=== PATIENT | male | born 1955 | race Caucasian/White ===

== ENCOUNTER 2022-06-04 11:53 | Observation (INO) ==
[2022-06-04] MEDS ORDERED: IODIXANOL 100 ML BOTTLE IV ONE (11:54)
[2022-06-04] MEDS ORDERED: 0.9 % SODIUM CHLORIDE 1,000 ML IV ONE (12:14)
--- NOTE | 2022-06-04 12:40 | Emergency Department Note ---
SOB HPI General Chief Complaint: Shortness of Breath/Dyspnea Stated Complaint: Throwing up blood his dr said go to ED Time Seen by Provider: 06/04/22 12:09 Source: patient Mode of arrival: ambulatory Limitations: no limitations History of Present Illness HPI Narrative: Ric Corbett is a 67-year-old male with a history of colon cancer (liver, status postresection), who presents emergency department complaining of hemoptysis for 4 to 5 days, 2-3 bouts per day, following a sharp pain, like a stitch in his right chest wall for approximately 6 to 7 days, growing progressively better each day. The patient states that on Thanksgi, he was choking and gagging, then coughing and the following day he developed right chest wall pain. He states has been unable to take a deep breath. He reports a history of pulmonary embolism after surgery to treat colon cancer with liver lesions, and he states this was very painful. He states his present symptoms are not the same as this. The patient says he was anticoagulated for approximately 1 year following diagnosis of pulmonary embolism. He says he is not presently on anticoagulant therapy. The patient reports that his hemoptysis is approximately a pencil-eras er-sized "blood clot looking thing." The patient says he has not had confinement, trauma, or surgery recently. He denies abdominal pain, leg pain, calf tenderness, dizziness, syncope, and all other acute complaints at this time. Related Data Home Medications Medication Instructions Recorded Confirmed cholecalciferol (vitamin D3) See Rx Instructions .Route .COMPLEX 04/08/21 06/04/22 Previous Rx's Medication Instructions Recorded pantoprazole 40 mg tablet,delayed 40 mg PO QDAY #90 tabs 09/17/21 release diltiazem HCl 240 mg capsule,24 See Rx Instructions .Route 12/14/21 hr,extended release .COMPLEX #90 caps apixaban 5 mg tablet (Eliquis) 10 mg PO BID #60 tabs 06/04/22 Allergies Allergy/AdvReac Type Severity Reaction Status Date / Time No Known Drug Allergies Allergy Verified 12/10/21 09:59 Review of Systems ROS ROS Narrative: A comprehensive review of systems is obtained and found to be negative, except as per HPI. [facility] Narr[facility] Patient History Narrative: Narrative: Medical/Surgical/Family History All Active Problems (Updated 06/04/22 @ 19:13 by Arlen Molina PA-C) Pulmonary embolism (Acute) DVT of lower extremity, bilateral (Acute) Hypertriglyceridemia (Acute) Peripheral neuropathy (Chronic) Hypertension (Chronic) Diabetes mellitus (Chronic) Colon cancer (Chronic) Medical History (Updated 06/04/22 @ 19:13 by Arlen Molina PA-C) Colon cancer Diabetes mellitus Gross hematuria September 2020, single episode Hypertension Hypertriglyceridemia Peripheral neuropathy After chemo Surgical History (Updated 04/08/21 @ 11:13 by Faizan Driscoll MD) History of partial colectomy Jun 2009 Liver mass 2010 resection after tumor shrunk with chemo No pertinent past surgical history Family History (Updated 04/03/21 @ 12:38 by Melissa Colin) Other No pertinent family history Social History Smoking Status: Former smoker Alcohol Intake Frequency: 2+ drinks per day Substance Use: marijuana Exam Narrative Narrative: General: Alert, pleasant, conversant, NAD; morbidly obese HEENT: Mask in place per COVID protocol, EOMI, PERRL Chest/Respiratory: Symmetric chest wall expansion, CTAB, adequate tidal volume and respiratory effort, speaks in complete paragraphs without difficulty CV: RRR/no MRG, cap refill less than 2 seconds Abdomen/GI: NABs, soft, NT/ND Extremities/MSK: MAEW, normal gait, no calf tenderness Skin: Normal warm and dry General Limitations: no limitations Course Course Course Narrative: Patient seen and evaluated by me. Upon initial evaluation there is a high susp icion for PE, and this work-up was initiated. Patient is treated with IV fluids and hospitalist consultation is requested upon return of results. Given the fact that the patient lives far from the hospital, with weather complicating transport (taking significantly more time), the possibility observation versus admission is discussed with the patient. He states that he does not wish to be admitted. Using a shared decision-making process, the importance of continued hospital care is discussed with the patient, and he agrees to consider observation. This is further discussed with the hospitalist, , who agrees to continue this discussion with the patient and his . Following th is discussion, the patient agrees to be placed to observation and Dr. Engel requests bilateral venous Dopplers to evaluate for DVT and initiation of a heparin drip for this patient. Venous Doppler studies return positive for extensive DVT bilaterally. Consultations Consultation #1: Called radiology to discuss pulmonary nodule on today's CXR that was not noted on 2017 CT C/A/P order for restaging of colon CA. Time: 12:58 Vital Signs Vital signs: Vital Signs Temperature 97.6 F 06/04/22 11:57 Pulse Rate 72 06/04/22 11:57 Respiratory Rate 22 06/04/22 11:57 Blood Pressure 180/88 06/04/22 11:57 Pulse Oximetry (%) 96 06/04/22 11:57 Oxygen Delivery Method 06/04/22 11:57 Temperature 97.8 F 06/04/22 17:45 Pulse Rate 63 06/04/22 17:38 Respiratory Rate 24 H 06/04/22 17:45 Blood Pressure 162/76 06/04/22 17:45 Pulse Oximetry (%) 94 06/04/22 17:45 Oxygen Delivery Method 06/04/22 17:38 MDM MDM Narrative Medical decision making narrative: Patient seen and evaluated by me. The patient is in no apparent distress, and his chest wall is not tender to palpation. Initial chest x-ray shows a rather large right basilar pulmonary nodule. This was not present on a 2017 CT C/A/P that was performed specifically for restaging of his colon cancer, ordered by Dr. Pavel Apple of the oncology service. D-dimer is 6.88, suspicious for DVT/PE. Today's CT returns positive for multiple pulmonary emboli bilaterally, as well as pulmonary infarct at the right basilar lung. Bilateral venous Dopplers return positive for extensive DVTs bilaterally, despite lack of calf tenderness upon exam. The patient accepted for placement to observation status with initiation of a heparin drip by Dr Engel. Sepsis Sepsis Identified: No Lab Data Lab results reviewed: Yes I reviewed the patient's lab results. Result diagrams: 06/04/22 12:44 06/04/22 12:44 Labs: Lab Results 06/04/22 06/04/22 06/04/22 Range/Units 12:40 12:42 12:44 WBC 7.1 (4.5-11.0) K/mcL RBC 4.98 (4.63-6.08) M/mcL Hgb 15.7 (13.7-17.5) g/dL Hct 46.7 (40.1-51.0) % POC Hct 48.0 (41-55) MCV 93.8 (80.0-100.0) fL MCH 31.5 (26.0-34.0) pg MCHC 33.6 (31.0-36.0) g/dL RDW 13.1 (11.5-14.5) % Plt Count 336 (140-440) K/mcL MPV 8.8 (8.8-12.5) fL Immature Gran % (Auto) 0.7 H (0.0-0.5) % Neut % (Auto) 63.7 (38.0-78.0) % Lymph % (Auto) 18.8 (15.5-49.0) % [place] % (Auto) 14.1 H (1.0-12.0) % Eos % (Auto) 1.6 (0.0-7.0) % Baso % (Auto) 1.1 (0.0-2.0) % Lymph # (Auto) 1.33 L (1.50-4.80) K/mcL [place] # (Auto) 1.00 H (0.10-0.90) K/mcL Eos # (Auto) 0.11 (0.00-0.70) K/mcL Baso # (Auto) 0.08 (0.00-0.30) K/mcL Immature Gran # 0.05 (0.00-0.05) K/mcl Absolute Neutrophils 4.50 (1.80-8.00) K/mcL POC PT (11.9-14.5) POC INR (0.8-1.2) APTT (20.0-37.0) sec D-Dimer (0.27-0.50) ug/mL POC Sodium 137 (133-145) Sodium (133-145) mmol/L POC Potassium 3.8 (3.3-5.1) Potassium (3.3-5.1) mmol/L POC Chloride 103 (96-108) Chloride (96-108) mmol/L Carbon Dioxide (22-30) mmol/L POC Total CO2 21.0 L (22-30) Anion Gap (8.0-16.0) POC BUN 21 H (6-20) BUN (8-23) mg/dL Creatinine (0.7-1.2) mg/dL POC Creatinine 1.0 (0.6-1.2) GFR Calculation Glucose (70-105) mg/dL POC Glucose 113 H (70-105) Calcium (8.6-10.4) mg/dL POC WB Ioniz Calcium 1.26 (1.16-1.32) Total Bilirubin (0.1-1.0) mg/dL AST (<40) U/L ALT (<40) U/L Alkaline Phosphatase (39-117) U/L Total Protein (5.9-8.4) gm/dL Albumin (3.2-5.2) gm/dL Globulin (2.2-3.7) gm/dL Albumin/Globulin Ratio (1.0-2.3) POC Troponin I < 0.02 (0.00-0.08) 06/04/22 06/04/22 06/04/22 Range/Units 12:44 12:44 12:44 WBC (4.5-11.0) K/mcL RBC (4.63-6.08) M/mcL Hgb (13.7-17.5) g/dL Hct (40.1-51.0) % POC Hct (41-55) MCV (80.0-100.0) fL MCH (26.0-34.0) pg MCHC (31.0-36.0) g/dL RDW (11.5-14.5) % Plt Count (140-440) K/mcL MPV (8.8-12.5) fL Immature Gran % (Auto) (0.0-0.5) % Neut % (Auto) (38.0-78.0) % Lymph % (Auto) (15.5-49.0) % [place] % (Auto) (1.0-12.0) % Eos % (Auto) (0.0-7.0) % Baso % (Auto) (0.0-2.0) % Lymph # (Auto) (1.50-4.80) K/mcL [place] # (Auto) (0.10-0.90) K/mcL Eos # (Auto) (0.00-0.70) K/mcL Baso # (Auto) (0.00-0.30) K/mcL Immature Gran # (0.00-0.05) K/mcl Absolute Neutrophils (1.80-8.00) K/mcL POC PT (11.9-14.5) POC INR (0.8-1.2) APTT 25.7 (20.0-37.0) sec D-Dimer 6.88 H (0.27-0.50) ug/mL POC Sodium (133-145) Sodium 133 (133-145) mmol/L POC Potassium (3.3-5.1) Potassium 3.7 (3.3-5.1) mmol/L POC Chloride (96-108) Chloride 99 (96-108) mmol/L Carbon Dioxide 19 L (22-30) mmol/L POC Total CO2 (22-30) Anion Gap 15.0 (8.0-16.0) POC BUN (6-20) BUN 18 (8-23) mg/dL Creatinine 1.0 (0.7-1.2) mg/dL POC Creatinine (0.6-1.2) GFR Calculation 76 Glucose 109 H (70-105) mg/dL POC Glucose (70-105) Calcium 9.6 (8.6-10.4) mg/dL POC WB Ioniz Calcium (1.16-1.32) Total Bilirubin 0.5 (0.1-1.0) mg/dL AST 51 H (<40) U/L ALT 34 (<40) U/L Alkaline Phosphatase 42 (39-117) U/L Total Protein 7.4 (5.9-8.4) gm/dL Albumin 3.6 (3.2-5.2) gm/dL Globulin 3.8 H (2.2-3.7) gm/dL Albumin/Globulin Ratio 0.9 L (1.0-2.3) POC Troponin I (0.00-0.08) 06/04/22 Range/Units 17:01 WBC (4.5-11.0) K/mcL RBC (4.63-6.08) M/mcL Hgb (13.7-17.5) g/dL Hct (40.1-51.0) % POC Hct (41-55) MCV (80.0-100.0) fL MCH (26.0-34.0) pg MCHC (31.0-36.0) g/dL RDW (11.5-14.5) % Plt Count (140-440) K/mcL MPV (8.8-12.5) fL Immature Gran % (Auto) (0.0-0.5) % Neut % (Auto) (38.0-78.0) % Lymph % (Auto) (15.5-49.0) % [place] % (Auto) (1.0-12.0) % Eos % (Auto) (0.0-7.0) % Baso % (Auto) (0.0-2.0) % Lymph # (Auto) (1.50-4.80) K/mcL [place] # (Auto) (0.10-0.90) K/mcL Eos # (Auto) (0.00-0.70) K/mcL Baso # (Auto) (0.00-0.30) K/mcL Immature Gran # (0.00-0.05) K/mcl Absolute Neutrophils (1.80-8.00) K/mcL POC PT 16.9 H (11.9-14.5) POC INR 1.4 H (0.8-1.2) APTT (20.0-37.0) sec D-Dimer (0.27-0.50) ug/mL POC Sodium (133-145) Sodium (133-145) mmol/L POC Potassium (3.3-5.1) Potassium (3.3-5.1) mmol/L POC Chloride (96-108) Chloride (96-108) mmol/L Carbon Dioxide (22-30) mmol/L POC Total CO2 (22-30) Anion Gap (8.0-16.0) POC BUN (6-20) BUN (8-23) mg/dL Creatinine (0.7-1.2) mg/dL POC Creatinine (0.6-1.2) GFR Calculation Glucose (70-105) mg/dL POC Glucose (70-105) Calcium (8.6-10.4) mg/dL POC WB Ioniz Calcium (1.16-1.32) Total Bilirubin (0.1-1.0) mg/dL AST (<40) U/L ALT (<40) U/L Alkaline Phosphatase (39-117) U/L Total Protein (5.9-8.4) gm/dL Albumin (3.2-5.2) gm/dL Globulin (2.2-3.7) gm/dL Albumin/Globulin Ratio (1.0-2.3) POC Troponin I (0.00-0.08) Radiology Data Radiology results reviewed: Yes I reviewed the patient's radiology results. Radiology results narrative: CTA Chest: IMPRESSION 1. Bilateral pulmonary embolism. Clot burden is considered large 2. Right lower lobe infiltrate consistent with pulmonary infarction 3. No pulmonary nodules 4. Mediastinal adenopathy is probably physiologic Interpreted and Authenticated by: Ty Mike 06/04/22 Bilateral venous Doppler: IMPRESSION 1 occlusive thrombus in the visualized aspect of the right greater saphenous vein, common femoral vein, proximal profunda femoral vein, and proximal femoral vein. 2. Occlusive thrombus in the mid and distal aspects of the left femoral vein as well as the left popliteal vein. Electronically signed by Jemal Estrada MD, June 04, 2022, at 1743 Paci fic Discharge Plan Patient/Caregiver Discharge Instructions Pt seen by AS[employer]/PA only: Yes Clinical Impression: Pulmonary embolism, DVT of lower extremity, bilateral Activity: increase activity as tolerated Patient Disposition: Still a Patient Condition: Fair
--- NOTE | 2022-06-04 12:44 | XRay Report ---
INDICATION: dyspnea. Hematemesis. History of colon cancer TECHNIQUE: AP portable chest x-ray COMPARISON: Previous chest CT dated 12/30/2016 FINDINGS: Lungs:Probable right basilar pulmonary parenchymal nodule. This is not optimally demonstrated. This patient has a history of colon cancer. Chest CT scan is recommended. Left lung appears negative. Heart, vascular:No significant cardiomegaly. Pulmonary vascularity is normal. No pulmonary edema or pulmonary congestion Mediastinum, gil:No mediastinal widening. No hilar mass Pleura:No pleural fluid. No pleural-based mass or calcification Skeletal:Negative. IMPRESSION: 1. Probable right basilar nodule 2. Recommend chest CT Interpreted and Authenticated by: Ty Mike 06/04/22
[2022-06-04 12:51] LABS: POC Calcium, Ionized 1.26 (1.16-1.32); POC Potassium 3.8 (3.3-5.1)
[2022-06-04 13:15] LABS: Basophils # (Auto) 0.08 K/mcL (0.00-0.30); Basophils % (Auto) 1.1 % (0.0-2.0); Eosinophils # (Auto) 0.11 K/mcL (0.00-0.70); Eosinophils % (Auto) 1.6 % (0.0-7.0); Hematocrit 46.7 % (40.1-51.0); Hemoglobin 15.7 g/dL (13.7-17.5); Lymphocytes # (Auto) 1.33 K/mcL (1.50-4.80); Lymphocytes % (Auto) 18.8 % (15.5-49.0); Mean Cell Volume 93.8 fL (80.0-100.0); Mean Corpuscular HGB Conc 33.6 g/dL (31.0-36.0); Mean Platelet Volume 8.8 fL (8.8-12.5); Monocytes % (Auto) 14.1 % (1.0-12.0); Neutrophils % (Auto) 63.7 % (38.0-78.0); Platelet Count 336 K/mcL (140-440); RBC 4.98 M/mcL (4.63-6.08); Red Cell Distribution Width 13.1 % (11.5-14.5); WBC 7.1 K/mcL (4.5-11.0)
[2022-06-04 14:00] LABS: ALT/SGPT 34 U/L (<40); AST/SGOT 51 U/L (<40); Albumin 3.6 gm/dL (3.2-5.2); Albumin/Globulin Ratio 0.9 (1.0-2.3); Alkaline Phosphatase 42 U/L (39-117); Bilirubin,Total 0.5 mg/dL (0.1-1.0); Blood Urea Nitrogen 18 mg/dL (8-23); Calcium 9.6 mg/dL (8.6-10.4); Carbon Dioxide 19 mmol/L (22-30); Chloride 99 mmol/L (96-108); Globulin 3.8 gm/dL (2.2-3.7); Glomerular Filtration Rate 76; Glucose 109 mg/dL (70-105)
--- NOTE | 2022-06-04 14:10 | Cat Scan Report ---
INDICATION: hemoptysis, h/o PE COMPARISON: Chest x-ray dated 08/05/2021 TECHNIQUE: Axial images obtained through the chest. 70ml Isovue 370 injected intravenously, and scanning was performed during pulmonary arterial phase. Sagittally and coronally reformatted images were obtained. MIP reformatted images. FINDINGS: Lungs:Focal infiltrate in the posterior aspects of the right lower lobe. This may be pneumonia but pulmonary infarction is possible. No other pulmonary parenchymal infiltrate. No pulmonary parenchymal nodules. No evidence for metastatic disease Mediastinum, vascular:Negative main pulmonary artery. There is embolic material at the origins of the right upper lobe and right middle lobe bronchi extending into the right pulmonary artery. There is clot within the right lower lobe pulmonary artery and segmental branches. There is segmental clot in right middle lobe and upper lobe. There is thrombus within the lingular branch of the left upper lobe pulmonary artery. Appearance is consistent with pulmonary embolism and large clot burden There are multiple small mediastinal lymph nodes which are probably physiologic Heart:No cardiomegaly. No pericardial effusion. There is no reflux of contrast material into the inferior vena cava and hepatic veins. There is extensive coronary artery calcification Pleura:No significant pleural effusion. No pleural mass or calcification Axilla, supraclavicular regions, chest wall:No pathologic axillary or supraclavicular adenopathy. Musculoskeletal:Negative thoracic spine. No compression fracture. No lytic lesion. No rib or sternal lesions Upper Abdomen:Negative IMPRESSION: 1. Bilateral pulmonary embolism. Clot burden is considered large 2. Right lower lobe infiltrate consistent with pulmonary infarction 3. No pulmonary nodules 4. Mediastinal adenopathy is probably physiologic The exam was performed using radiation dose optimization techniques including, but not limited to, automated exposure control, adjustment of the mA and/or kV according to patient size and use of iterative reconstruction technique. Interpreted and Authenticated by: Ty Mike 06/04/22
--- NOTE | 2022-06-04 16:28 | Internal Med History&Physical ---
HPI History of Present Illness Patient information: Note initiated : 06/04/22 at 4:28 pm Service Date, if different from initiated Date: [] Patient: Ric Corbett a 67 y/o M admitted on for Throwing up blood his dr said go to ED. Chief Complaint: [] History of present illness: Mr. Corbett is a 67 year old M Presents to the ED with shortness of breath and hemoptysis. Patient states that Thanksgiving he had an episode of choking and coughing and developed right-sided lateral chest pain. the next day he noticed that he was short of breath especially with any type of exertion. And then started developing hemoptysis which he said was a small amount. He presented today because of the continued shortness of breath and mild hemoptysis. Patient does have a history of colon cancer and did have a PE during the time that he had liver surgeries for resection of the mass. He was on Coumadin at that time. Patient has been under surveillance by Dr. Apple. Work-up in the ED revealed a large clot burden bilaterally mostly on the right. Patient is short of breath but maintaining oxygen saturation at this time. Review of Systems: Pertinent positives as above. Denies headache/fever/chills/nausea/vomiting/chest or abdominal pain/diarrhea. Remaining 10 point review of system reviewed negative PFSH PFSH All Active Problems (Updated 06/15/21 @ 06:10 by Faizan Driscoll MD) Hypertriglyceridemia (Acute) Peripheral neuropathy (Chronic) Hypertension (Chronic) Diabetes mellitus (Chronic) Colon cancer (Chronic) Medical History (Updated 06/15/21 @ 06:10 by Faizan Driscoll MD) Colon cancer Diabetes mellitus Gross hematuria September 2020, single episode Hypertension Hypertriglyceridemia Peripheral neuropathy After chemo Surgical History (Updated 04/08/21 @ 11:13 by Faizan Driscoll MD) History of partial colectomy Jun 2009 Liver mass 2010 resection after tumor shrunk with chemo No pertinent past surgical history Family History (Updated 04/03/21 @ 12:38 by Melissa Colin) Other No pertinent family history Social History household members: spouse housing: house lives independently: Yes marital status: occupational status: retired smoking status: Former smoker smoking status stop date: 07/04/90 alcohol intake frequency: 2+ drinks per day substance use type: marijuana MEDS/ALLERGIES Home Medications and Allergies Home Medications Medication Instructions Recorded Confirmed Type cholecalciferol (vitamin D3) See Rx Instructions .Route .COMPLEX 04/08/21 06/04/22 History pantoprazole 40 mg tablet,delayed 40 mg PO QDAY #90 tabs 09/17/21 06/04/22 Rx release diltiazem HCl 240 mg capsule,24 See Rx Instructions .Route 12/14/21 06/04/22 Rx hr,extended release .COMPLEX #90 caps Allergies Allergy/AdvReac Type Severity Reaction Status Date / Time No Known Drug Allergies Allergy Verified 12/10/21 09:59 EXAM Constitutional Vitals: Temp Pulse Resp BP Pulse Ox O2 Del Method 97.6 F 62 20 173/93 98 06/04/22 11:57 06/04/22 15:46 06/04/22 15:46 06/04/22 15:46 06/04/22 15:46 06/04/22 12:42 Exam: General: Alert, Awake, No acute Distress, obese Eyes/N/T: EOMI, Head/Neck: neck supple, normocephalic atraumatic CV: RRR, No murmurs, normal s1/s2 Pulm: Clear b/l, no wheezing/rhonchi/rales Abd: soft, nontender, +BS x4 Ext: no clubbing/cyanosis/edema Neuro: Alert, no focal deficits, moves all extremities, CN 2-12 grossly intact, sensations intact b/l upper/lower Skin: warm/dry DATA Data Completed and Pending Labs: Labs from last 24 hours 06/04/22 06/04/22 06/04/22 12:44 12:44 12:44 WBC 7.1 RBC 4.98 Hgb 15.7 Hct 46.7 POC Hct MCV 93.8 MCH 31.5 MCHC 33.6 RDW 13.1 Plt Count 336 MPV 8.8 Immature Gran % (Auto) 0.7 H Neut % (Auto) 63.7 Lymph % (Auto) 18.8 [place] % (Auto) 14.1 H Eos % (Auto) 1.6 Baso % (Auto) 1.1 Lymph # (Auto) 1.33 L [place] # (Auto) 1.00 H Eos # (Auto) 0.11 Baso # (Auto) 0.08 Immature Gran # 0.05 Absolute Neutrophils 4.50 D-Dimer 6.88 H POC Sodium Sodium 133 POC Potassium Potassium 3.7 POC Chloride Chloride 99 Carbon Dioxide 19 L POC Total CO2 Anion Gap 15.0 POC BUN BUN 18 Creatinine 1.0 POC Creatinine GFR Calculation 76 Glucose 109 H POC Glucose Calcium 9.6 POC WB Ioniz Calcium Total Bilirubin 0.5 AST 51 H ALT 34 Alkaline Phosphatase 42 Total Protein 7.4 Albumin 3.6 Globulin 3.8 H Albumin/Globulin Ratio 0.9 L POC Troponin I 06/04/22 06/04/22 12:42 12:40 WBC RBC Hgb Hct POC Hct 48.0 MCV MCH MCHC RDW Plt Count MPV Immature Gran % (Auto) Neut % (Auto) Lymph % (Auto) [place] % (Auto) Eos % (Auto) Baso % (Auto) Lymph # (Auto) [place] # (Auto) Eos # (Auto) Baso # (Auto) Immature Gran # Absolute Neutrophils D-Dimer POC Sodium 137 Sodium POC Potassium 3.8 Potassium POC Chloride 103 Chloride Carbon Dioxide POC Total CO2 21.0 L Anion Gap POC BUN 21 H BUN Creatinine POC Creatinine 1.0 GFR Calculation Glucose POC Glucose 113 H Calcium POC WB Ioniz Calcium 1.26 Total Bilirubin AST ALT Alkaline Phosphatase Total Protein Albumin Globulin Albumin/Globulin Ratio POC Troponin I < 0.02 A/P Narrative A/P Narrative: A: *b/l PE, large clot burden: *Hemoptysis: 2/2 above *ZUNIGA: *DM2: On metformin *HTN/HLD: On diltiazem *GERD: *h/o colon cancer with liver met s/p resection: Follows with Dr. Apple *Obesity: BMI 38 P: -heparin gtt o/n to likely eliquis -IVF -Monitor vitals closely and oxygenation -pcu monitoring - -Continue home diltiazem -SSI, hold metformin for now -Home medication reconciliation Time Spent With Patient Time: Total time spent is greater than 50% in coordination of care (as documented) at patient's floor/unit and/or counseling patient: Total time spent with greater than 50% in coordination of care (as documented) at patient's floor/unit and/or counseling patient:: Greater than 70 minutes
[2022-06-04] MEDS ORDERED: HEPARIN 10,000 UNIT/ML VIAL IV ONE (16:35)
[2022-06-04 17:04] LABS: POC INR 1.4 (0.8-1.2); POC Pro Time 16.9 (11.9-14.5)
[2022-06-04] MEDS ORDERED: HEPARIN 5,000 UNIT/ML VIAL ONE (17:11)
[2022-06-04] MEDS: HEPARIN SOD,PORK IN 0.45% NACL 25,000 UNIT in PREMIX 1 BAG IV SCH (17:29)
[2022-06-04] MEDS ORDERED: MAGNESIUM SULFATE 2 GM/50 ML BAG IV PRN (17:40)
[2022-06-04] MEDS ORDERED: hydrALAZINE 20 MG/ML VIAL IV PRN (17:40)
[2022-06-04] MEDS ORDERED: ACETAMINOPHEN 325 MG TABLET PO PRN (17:40)
[2022-06-04] MEDS ORDERED: LABETALOL 5 MG/ML ML IV PRN (17:40)
[2022-06-04] MEDS ORDERED: DEXTROSE 50% 50 ML VIAL IV PRN (17:40)
[2022-06-04] MEDS ORDERED: SENNOSIDES 1 TABLET PO PRN (17:40)
[2022-06-04] MEDS ORDERED: ONDANSETRON 4 MG/2 ML VIAL IV PRN (17:40)
[2022-06-04] MEDS ORDERED: IPRATROPIUM/ALBUTEROL 3 ML AMPUL.NEB NEB PRN (17:40)
[2022-06-04] MEDS ORDERED: POTASSIUM CHLORIDE 40 MEQ in DEXTROSE 5% IN WATER 500 ML IV PRN (17:40)
[2022-06-04] MEDS ORDERED: POTASSIUM CHLORIDE 20 MEQ TABLET PO PRN ×2 (17:40)
[2022-06-04] MEDS ORDERED: POLYETHYLENE GLYCOL 3350 17 GM PACKET PO PRN (17:40)
[2022-06-04] MEDS ORDERED: 0.9 % SODIUM CHLORIDE 1,000 ML IV SCH (17:40)
[2022-06-04] MEDS ORDERED: HYDROcodone/APAP 5/325MG TABLET PO PRN (17:40)
[2022-06-04] MEDS ORDERED: DEXTROSE 31 GM ORAL.SUSP PO PRN (17:40)
--- NOTE | 2022-06-04 17:46 | Discharge Summary ---
Discharge Provider Provider IMPORTANT FOLLOW-UP INFORMATION FOR PCP: Pt to monitor blood pressure twice daily, keep log and bring to PCP. Lisinopril started at 10mg daily. Patient information: Note initiated : 06/04/22 at 5:45 pm Service Date, if different from initiated Date: [] Patient: Ric Corbett 67 y/o M admitted on 06/04/22 for Throwing up blood his dr said go to ED. Chief Complaint: [] Date of admission: 06/04/22 17:38 Discharge date: 06/05/22 Primary care physician: Faizan Driscoll MD Consults: 06/04/22 Consult to Physician [CONS] Stat Comment: Consulting Provider: Abraham Cain Reason For Exam: Physician to Consult COURSE Hospital Course Hospital course: Bilateral pulmonary embolism hemoptysis dyspneaHistory of present illness: Mr. Corbett is a 67 year old M Presents to the ED with shortness of breath and hemoptysis. Patient states that Thanksgiving he had an episode of choking and coughing and developed right-sided lateral chest pain. the next day he noticed that he was short of breath especially with any type of exertion. And then started developing hemoptysis which he said was a small amount. He presented today because of the continued shortness of breath and mild hemoptysis. Patient does have a history of colon cancer and did have a PE during the time that he had liver surgeries for resection of the mass. He was on Coumadin at that time. Patient has been under surveillance by Dr. Apple. Work-up in the ED revealed a large clot burden bilaterally mostly on the right. Patient is short of breath but maintaining oxygen saturation at this time. 12/3 And feeling better. Right lateral chest wall pain improving. On room air. However his blood pressure is elevated I asked what its typically runs he says its high. We will start lisinopril. Patient states has been much more sedentary in the past month. This along with obesity are his risk factors for venous thrombosis. Has not seen Dr. Apple in a few years but denies any GI bleeding or change in bowel habits. A: *b/l PE, large clot burden: *Hemoptysis: 2/2 above *ZUNIGA: *DM2: On metformin *HTN/HLD: On diltiazem, still *GERD: *h/o colon cancer with liver met s/p resection: Follows with Dr. Apple *Obesity: BMI 38 P: -Eliquis -add lisinopril Discharge diagnosis: Bilateral pulmonary embolism hemoptysis dyspnea Secondary discharge diagnosis: Diabetes hypertension GERD history of colon cancer obesity Time Spent with Patient Time attestation: Total time spent providing and/or coordinating discharge services: Time spent: Greater than 30 minutes EXAM Constitutional Vitals: Temp Pulse Resp BP Pulse Ox O2 Del Method 97.6 F 62 13 177/97 97 06/04/22 11:57 06/04/22 16:02 06/04/22 16:02 06/04/22 16:02 06/04/22 16:02 06/04/22 12:42 Discharge Data Data Completed and Pending Labs on day of discharge: Labs from last 24 hours 06/04/22 06/04/22 06/04/22 17:01 12:44 12:44 WBC RBC Hgb Hct POC Hct MCV MCH MCHC RDW Plt Count MPV Immature Gran % (Auto) Neut % (Auto) Lymph % (Auto) [place] % (Auto) Eos % (Auto) Baso % (Auto) Lymph # (Auto) [place] # (Auto) Eos # (Auto) Baso # (Auto) Immature Gran # Absolute Neutrophils POC PT 16.9 H POC INR 1.4 H APTT 25.7 D-Dimer POC Sodium Sodium 133 POC Potassium Potassium 3.7 POC Chloride Chloride 99 Carbon Dioxide 19 L POC Total CO2 Anion Gap 15.0 POC BUN BUN 18 Creatinine 1.0 POC Creatinine GFR Calculation 76 Glucose 109 H POC Glucose Calcium 9.6 POC WB Ioniz Calcium Total Bilirubin 0.5 AST 51 H ALT 34 Alkaline Phosphatase 42 Total Protein 7.4 Albumin 3.6 Globulin 3.8 H Albumin/Globulin Ratio 0.9 L POC Troponin I 06/04/22 06/04/22 06/04/22 12:44 12:44 12:42 WBC 7.1 RBC 4.98 Hgb 15.7 Hct 46.7 POC Hct 48.0 MCV 93.8 MCH 31.5 MCHC 33.6 RDW 13.1 Plt Count 336 MPV 8.8 Immature Gran % (Auto) 0.7 H Neut % (Auto) 63.7 Lymph % (Auto) 18.8 [place] % (Auto) 14.1 H Eos % (Auto) 1.6 Baso % (Auto) 1.1 Lymph # (Auto) 1.33 L [place] # (Auto) 1.00 H Eos # (Auto) 0.11 Baso # (Auto) 0.08 Immature Gran # 0.05 Absolute Neutrophils 4.50 POC PT POC INR APTT D-Dimer 6.88 H POC Sodium 137 Sodium POC Potassium 3.8 Potassium POC Chloride 103 Chloride Carbon Dioxide POC Total CO2 21.0 L Anion Gap POC BUN 21 H BUN Creatinine POC Creatinine 1.0 GFR Calculation Glucose POC Glucose 113 H Calcium POC WB Ioniz Calcium 1.26 Total Bilirubin AST ALT Alkaline Phosphatase Total Protein Albumin Globulin Albumin/Globulin Ratio POC Troponin I 06/04/22 12:40 WBC RBC Hgb Hct POC Hct MCV MCH MCHC RDW Plt Count MPV Immature Gran % (Auto) Neut % (Auto) Lymph % (Auto) [place] % (Auto) Eos % (Auto) Baso % (Auto) Lymph # (Auto) [place] # (Auto) Eos # (Auto) Baso # (Auto) Immature Gran # Absolute Neutrophils POC PT POC INR APTT D-Dimer POC Sodium Sodium POC Potassium Potassium POC Chloride Chloride Carbon Dioxide POC Total CO2 Anion Gap POC BUN BUN Creatinine POC Creatinine GFR Calculation Glucose POC Glucose Calcium POC WB Ioniz Calcium Total Bilirubin AST ALT Alkaline Phosphatase Total Protein Albumin Globulin Albumin/Globulin Ratio POC Troponin I < 0.02 Discharge Plan Patient/Caregiver Discharge Instructions Activity: increase activity as tolerated Diet: Consistent Carbohydrate Activity Restrictions/Additional Instructions: Monitor blood pressure twice daily, keep log and bring to PCP. Prescriptions: New Eliquis 5 mg tablet 10 mg PO BID Qty: 60 0RF Rx Instructions: 10mg twice daily for 13 doses, then 5mg twice daily thereafter. lisinopril 10 mg Tablet 10 mg PO DAILY Qty: 30 0RF Continued pantoprazole 40 mg tablet,delayed release (DR/EC) 40 mg PO QDAY Qty: 90 3RF diltiazem HCl 240 mg capsule,extended release 24 hr See Rx Instructions .ROUTE .COMPLEX Qty: 90 3RF Dose Instruction: TAKE 1 CAPSULE BY MOUTH EVERY DAY Rx Instructions: TAKE 1 CAPSULE BY MOUTH EVERY DAY cholecalciferol (vitamin D3) See Rx Instructions .ROUTE .COMPLEX Rx Instructions: Unsure of dose. OTC Follow Up Plan Follow up with: Faizan Driscoll MD [Primary Care Provider] - Patient Disposition: Home, Self-Care Prognosis: Fair Overall status at discharge: patient is progressing back to baseline Discharge Orders: Discharge Order (Routine); Ordered 06/05/22 Ordered By: Abraham Cain
[2022-06-04] MEDS: INSULIN LISPRO 1 UNIT/0.01 ML UNIT SQ SCH ×2 (18:44→20:29)
[2022-06-04] MEDS: DOCUSATE SODIUM 100 MG CAPSULE PO SCH (20:28)
[2022-06-04] MEDS ORDERED: 0.9 % SODIUM CHLORIDE 10 ML SYRINGE IV SCH (22:00)
--- NOTE | 2022-06-05 05:24 | Ultrasound Report ---
INDICATION: PE with large clot burden COMPARISON: None. TECHNIQUE: Grayscale and color flow Doppler spectral imaging of the deep venous system in both lower extremities. FINDINGS: Extensive bilateral deep venous thrombosis. There is thrombus within the common femoral vein, femoral vein, popliteal vein bilaterally. There is thrombus within the calf veins bilaterally. No patent deep veins are identified. IMPRESSION: Extensive bilateral deep venous thrombosis as above Interpreted and Authenticated by: Ty Mike 06/05/22
[2022-06-05] MEDS: 0.9 % SODIUM CHLORIDE 500 ML IV ONE ×2 (05:36→05:37)
[2022-06-05] MEDS: HEPARIN SOD,PORK IN 0.45% NACL 25,000 UNIT in PREMIX 1 BAG IV SCH (07:33)
[2022-06-05] MEDS: INSULIN LISPRO 1 UNIT/0.01 ML UNIT SQ SCH (08:18)
[2022-06-05 08:25] LABS: Basophils # (Auto) 0.08 K/mcL (0.00-0.30); Basophils % (Auto) 1.4 % (0.0-2.0); Eosinophils # (Auto) 0.18 K/mcL (0.00-0.70); Eosinophils % (Auto) 3.2 % (0.0-7.0); Hematocrit 41.2 % (40.1-51.0); Lymphocytes % (Auto) 28.6 % (15.5-49.0); Mean Cell Volume 93.8 fL (80.0-100.0); Mean Platelet Volume 9.3 fL (8.8-12.5); Monocytes # (Auto) 0.85 K/mcL (0.10-0.90); Monocytes % (Auto) 15.2 % (1.0-12.0); Neutrophils % (Auto) 51.1 % (38.0-78.0); Platelet Count 333 K/mcL (140-440); RBC 4.39 M/mcL (4.63-6.08); WBC 5.6 K/mcL (4.5-11.0)
[2022-06-05] MEDS ORDERED: DILTIAZEM 240 MG CAP.XL.24H PO SCH (09:00)
[2022-06-05] MEDS ORDERED: LISINOPRIL 10 MG TABLET PO SCH (09:00)
[2022-06-05] MEDS ORDERED: PANTOPRAZOLE 40 MG TABLET PO SCH (09:00)
[2022-06-05] MEDS ORDERED: APIXABAN 5 MG TABLET PO SCH (09:00)
[2022-06-05] MEDS: DOCUSATE SODIUM 100 MG CAPSULE PO SCH (09:27)
--- NOTE | 2022-06-07 08:56 | EKG ---
[facility] Minor Care Test Date: 2022-06-04 Pat Name: Ric Corbett Department: ED Room: Gender: Male [employer] Technician: MICHELL : 1955 Requested By: Arlen Molina Order Number: [id number] Reading MD: Ty Wang M.D. Measurements Intervals [place] Rate: 68 P: -11 MD: 180 QRS: -20 QRSD: 106 T: 30 QT: 445 QTc: 474 Interpretive Statements Sinus rhythm Poor R wave progression. Ventricular premature complex Borderline left axis deviation Electronically Signed On 06-07-2022 8:55:59 PST by Ty Wang M.D. /[id number]
== END 2022-06-05 11:05 | disposition home or self-care (01) ==
LOC: ED 11:53 → ICU 11:53
PROVIDERS: ADMIT Internal Medicine; ATTEND Internal Medicine